=== PATIENT | male | born 1965 | race Caucasian/White ===

== ENCOUNTER 2017-12-06 13:01 | Emergency (ER) | payer BC, SELFPAY ==
[2017-12-06 13:06] VITALS: BP 132/103; PULSE 61; RESP 16; TEMP 36.7; O2SAT 98
--- NOTE | 2017-12-06 13:45 | DI.RAD_ITS ---
SYMPTOMS/DIAGNOSIS: LACERATION DISTAL PHALANX LEFT INDEX FINGER: There is a comminuted fracture of the distal phalanx of the index finger and an open soft tissue wound. There is some displacement of a few small fracture fragments as well as mild angulation. IMPRESSION: Open comminuted fracture of the distal phalanx of the index finger.
[2017-12-06] MEDS: Bupivacaine 0.5% Pres-Free 30 ML VIAL 5 ML IJ (13:56)
--- NOTE | 2017-12-06 14:32 | W.ED.GENAD ---
Discharge Plan Disposition Patient Disposition: HOME Discharge Details Chief Complaint: Laceration Clinical Impression: Crushing injury of left index finger, Fracture of distal phalanx of index finger, Injury of nail bed of finger of left hand Primary Care Provider: Leonard Ricks ED Provider: Balta Gordon Home Meds and New Rx's Prescriptions: New cephalexin 500 mg tablet 500 mg PO TID Qty: 6 RF: 0 Continue aspirin [Aspirin Low-Strength] 81 MG tablet,chewable 81 mg PO DAILY RF: 0 lovastatin 40 MG tablet 40 mg PO QPM Qty: 90 RF: 3 vitamin B complex 1 EACH capsule 1 ea PO DAILY RF: 0 lisinopril-hydrochlorothiazide 1 EACH tablet 0.5 tab-cap PO DAILY RF: 0 Discharge Instructions Instructions: Finger Fracture (ED) Additional Instructions: Take ibuprofen 600 mg every 6 hours as needed for pain. Take Tylenol 650 mg every 6 hours as needed for pain. Keep splint intact. No use of injured digit until cleared. Follow-up with Dr. Mckinney. Call his office to schedule an appointment. Return to the ER for any worsening or new concerning symptoms. Referrals: Randell Mckinney MD [ [facility] STAFF PHYSICIAN] - Leonard Ricks [Primary Care Provider] - Medical Decision Making 52-year-old male presents with crush injury to his distal left second digit, laceration extending into the nailbed with partial nail avulsion. X-ray of the left second digit interpreted by me: Fracture of the distal phalanx I called and spoke with Dr. Mckinney, on-call orthopedics, who evaluated the patient here in the emergency department. With his assistance the nail was inserted under eponychium and fracture reducted. Laceration repair: Indication: bleeding, wound Consent: verbal Anesth: digital block Note: wound irrigated with copious sterile saline, prepred with betadine. I placed #2 nylon 4-0 sutures to approximate skin laceration. An additional single proline 4-0 suture was placed through nail to keep nail in place. Sterile dressing applied. Complications: none Your splint was placed by me. Patient was instructed to follow-up with Dr. Mckinney in the clinic. He will call the clinic for an appointment. Patient be provided Keflex prophylaxis for the next couple days. Tetanus is up to date. HPI General Mode of arrival: ambulatory. Date/Time Provider Initiated Documentation: 12/06/17 13:23. Limitations to Documentation: no limitations. Information obtained by: patient. HPI Narrative: 52-year-old male presents with injury to his left second digit. Patient notes he was at work about an hour prior to arrival and sustained a crush injury to his left second digit distally. Finger was caught between 2 heavy pieces of steel. He did sustain laceration that has been bleeding. Bleeding was initially heavy and has decreased. No modifiers. Pain is moderate to severe. Related Data Home Medications Medication Instructions Recorded Confirmed aspirin [Aspirin Low-Strength] 81 mg PO DAILY tab-cap 05/22/12 12/06/17 lovastatin 40 mg PO QPM #90 tab 11/01/16 12/06/17 vitamin B complex 1 ea PO DAILY 02/21/17 12/06/17 cephalexin 500 mg PO TID #6 tab 12/06/17 lisinopril-hydrochlorothiazide 0.5 tab-cap PO DAILY 12/06/17 12/06/17 Previous Rx's Medication Instructions Recorded lovastatin 40 mg PO QPM #90 tab 11/01/16 cephalexin 500 mg PO TID #6 tab 12/06/17 Allergies Allergy/AdvReac Type Severity Reaction Status Date / Time No Known Allergies Allergy Unverified 12/06/17 13:10 General Stated Complaint: Laceration ELIAZAR: 3 Review of Systems Musculoskeletal Reports as per HPI Integumentary/Breasts Reports as per HPI PFSH Family History Mother Essential hypertension Neoplasm Father Diabetes Essential hypertension Heart disease Sister No problems noted. Brother Diabetes Essential hypertension Brother No problems noted. 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 pets and animals: No frequency: does not exercise Smoking/Tobacco Use Status: Never alcohol intake: current alcohol intake frequency: a few times a month substance use type: does not use carolyn/adventism: Confucianist Surgical History Tonsillectomy Exam Const General: cooperative Orientation: alert and awake Skin Other: 2 cm laceration left lateral distal phalanx extending dorsally into the nailbed, nail partially avulsed Neuro Other: see extremity Extrem Right upper extremity: hand Left upper extremity: hand (second digit: distal laceration and partial nail avulsion (see skin), distal sensation decrease laterally, able to flext and ext at DIP with pain, brisk cap refill) Course Vital Signs Temperature 36.7 C 12/06/17 13:06 Pulse 61 12/06/17 13:06 Respiratory Rate 16 12/06/17 13:06 Blood Pressure 132/103 H 12/06/17 13:06 Pulse Oximetry 98 12/06/17 13:06 Temperature 36.7 C 12/06/17 13:06 Temperature Source Skin 12/06/17 13:06 Pulse 61 12/06/17 13:06 Respiratory Rate 16 12/06/17 13:06 Respiratory Effort 12/06/17 13:11 Blood Pressure 132/103 H 12/06/17 13:06 Blood Pressure Position Sitting 12/06/17 13:06 Pulse Oximetry 98 12/06/17 13:06 Oxygen Delivery Method Room Air 12/06/17 13:06 Oxygen Flow Rate 0 12/06/17 13:06 Pain Level 6 12/06/17 13:06 Procedures Nerve Block Nerve Block 1: Time out performed: Yes Local Anesthetic: Bupivicaine 0.5% Amount of anesthesia used (mL): 4 Side: left Nerve Blocks: digital Procedure Successful: Yes Patient Tolerated Procedure: well Complications: none
--- NOTE | 2017-12-06 14:42 | ED.GENADUL_ITS ---
Discharge Plan Disposition Patient Disposition: HOME Discharge Details Chief Complaint: Laceration Clinical Impression: Crushing injury of left index finger, Fracture of distal phalanx of index finger, Injury of nail bed of finger of left hand Primary Care Provider: Leonard Ricks ED Provider: Balta Gordon Home Meds and New Rx's Prescriptions: New cephalexin 500 mg tablet 500 mg PO TID Qty: 6 RF: 0 Continue aspirin [Aspirin Low-Strength] 81 MG tablet,chewable 81 mg PO DAILY RF: 0 lovastatin 40 MG tablet 40 mg PO QPM Qty: 90 RF: 3 vitamin B complex 1 EACH capsule 1 ea PO DAILY RF: 0 lisinopril-hydrochlorothiazide 1 EACH tablet 0.5 tab-cap PO DAILY RF: 0 Discharge Instructions Instructions: Finger Fracture (ED) Additional Instructions: Take ibuprofen 600 mg every 6 hours as needed for pain. Take Tylenol 650 mg every 6 hours as needed for pain. Keep splint intact. No use of injured digit until cleared. Follow-up with Dr. Mckinney. Call his office to schedule an appointment. Return to the ER for any worsening or new concerning symptoms. Referrals: Randell Mckinney MD [ [facility] STAFF PHYSICIAN] - Leonard Ricks [Primary Care Provider] - Medical Decision Making 52-year-old male presents with crush injury to his distal left second digit, laceration extending into the nailbed with partial nail avulsion. X-ray of the left second digit interpreted by me: Fracture of the distal phalanx I called and spoke with Dr. Mckinney, on-call orthopedics, who evaluated the patient here in the emergency department. With his assistance the nail was inserted under eponychium and fracture reducted. Laceration repair: Indication: bleeding, wound Consent: verbal Anesth: digital block Note: wound irrigated with copious sterile saline, prepred with betadine. I placed #2 nylon 4-0 sutures to approximate skin laceration. An additional single proline 4-0 suture was placed through nail to keep nail in place. Sterile dressing applied. Complications: none Your splint was placed by me. Patient was instructed to follow-up with Dr. Mckinney in the clinic. He will call the clinic for an appointment. Patient be provided Keflex prophylaxis for the next couple days. Tetanus is up to date. HPI General Mode of arrival: ambulatory . Date/Time Provider Initiated Documentation: 12/06/17 13:23 . Limitations to Documentation: no limitations . Information obtained by: patient . HPI Narrative: 52-year-old male presents with injury to his left second digit. Patient notes he was at work about an hour prior to arrival and sustained a crush injury to his left second digit distally. Finger was caught between 2 heavy pieces of steel. He did sustain laceration that has been bleeding. Bleeding was initially heavy and has decreased. No modifiers. Pain is moderate to severe. Related Data Home Medications Medication Instructions Recorded Confirmed aspirin [Aspirin Low-Strength] 81 mg PO DAILY tab-cap 05/22/12 12/06/17 lovastatin 40 mg PO QPM #90 tab 11/01/16 12/06/17 vitamin B complex 1 ea PO DAILY 02/21/17 12/06/17 cephalexin 500 mg PO TID #6 tab 12/06/17 lisinopril-hydrochlorothiazide 0.5 tab-cap PO DAILY 12/06/17 12/06/17 Previous Rx's Medication Instructions Recorded lovastatin 40 mg PO QPM #90 tab 11/01/16 cephalexin 500 mg PO TID #6 tab 12/06/17 Allergies Allergy/AdvReac Type Severity Reaction Status Date / Time No Known Allergies Allergy Unverified 12/06/17 13:10 General Stated Complaint: Laceration ELIAZAR: 3 Review of Systems Musculoskeletal Reports as per HPI Integumentary/Breasts Reports as per HPI PFSH Family History Mother Essential hypertension Neoplasm Father Diabetes Essential hypertension Heart disease Sister No problems noted. Brother Diabetes Essential hypertension Brother No problems noted. 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 pets and animals: No frequency: does not exercise Smoking/Tobacco Use Status: Never alcohol intake: current alcohol intake frequency: a few times a month substance use type: does not use carolyn/restoration: Yarsani Surgical History Tonsillectomy Exam Const General: cooperative Orientation: alert and awake Skin Other: 2 cm laceration left lateral distal phalanx extending dorsally into the nailbed, nail partially avulsed Neuro Other: see extremity Extrem Right upper extremity: hand Left upper extremity: hand (second digit: distal laceration and partial nail avulsion (see skin), distal sensation decrease laterally, able to flext and ext at DIP with pain, brisk cap refill) Course Vital Signs Temperature 36.7 C 12/06/17 13:06 Pulse 61 12/06/17 13:06 Respiratory Rate 16 12/06/17 13:06 Blood Pressure 132/103 H 12/06/17 13:06 Pulse Oximetry 98 12/06/17 13:06 Temperature 36.7 C 12/06/17 13:06 Temperature Source Skin 12/06/17 13:06 Pulse 61 12/06/17 13:06 Respiratory Rate 16 12/06/17 13:06 Respiratory Effort 12/06/17 13:11 Blood Pressure 132/103 H 12/06/17 13:06 Blood Pressure Position Sitting 12/06/17 13:06 Pulse Oximetry 98 12/06/17 13:06 Oxygen Delivery Method Room Air 12/06/17 13:06 Oxygen Flow Rate 0 12/06/17 13:06 Pain Level 6 12/06/17 13:06 Procedures Nerve Block Nerve Block 1: Time out performed: Yes Local Anesthetic: Bupivicaine 0.5% Amount of anesthesia used (mL): 4 Side: left Nerve Blocks: digital Procedure Successful: Yes Patient Tolerated Procedure: well Complications: none
[2017-12-06] MEDS: Acetaminophen 325 MG TAB 650 MG PO (15:40)
[2017-12-06] MEDS: Cephalexin 500 MG CAP PO (15:40)
[2017-12-06 15:48] VITALS: BP 130/90; PULSE 58; RESP 14; TEMP 37; O2SAT 98
--- NOTE | 2017-12-06 20:32 | OCONE_ITS ---
Date of service: 12/06/17 Time of Service: 14:30 History of Present Illness Chief Complaint: Left Index Finger Deformity Narrative: Lonny is a 52-year-old who had a left index finger crusting to piece of steel. He has an open fracture of the left index finger with deformity laceration over the ulnar aspect. He denies any significant injuries to this hand. He denies any other injuries at the time. He does have some numbness and tingling of the tip of the finger. All bleeding has been controlled. Consult Reason Left index finger open fracture Assessment and Plan (1) Open fracture of distal phalanx of left index finger: Current visit: No Status: Acute Lonny is a 52-year-old who has a comminuted distal phalanx fracture which is open due to laceration from a crushing mechanism. It is very possible some of the surrounding tissue does not heal as well as would like given the crush mechanism. However the current cut edges are quite good. The bone is comminuted but overall alignment is maintained with the current laceration approximation. The nail plate was pulled out of the eponychial fold but now appears to be reduced. I am hopeful that we will be able to hold this in position where it is. He will had 2 days worth of antibiotics in the open fracture. I will see him back in 5-7 days for dressing change and evaluation. Review of Systems Review of Systems All systems reviewed & are unremarkable except as noted in HPI and below PFSH Family History Mother Essential hypertension Neoplasm Father Diabetes Essential hypertension Heart disease Sister No problems noted. Brother Diabetes Essential hypertension Brother No problems noted. 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 There is no exposed bone. There is no gross contamination. The nail plate is displaced dorsal to the eponychial fold. There is no active bleeding. The fingertip is still warm and well perfused. It is radially angulated with gapping of the ulnar laceration of 5 mm or so. He is able to flex and extend the fingertip. I have assisted Dr. Gordon in evaluation and fixation of this injury. A digital block was performed by Dr. Gordon in the emergency department. Wound and finger were prepped with Betadine. There is no gross bone visible. I was able to manipulate the distal tip of the finger so that the nail plate would go underneath the eponychial fold. This reduced the finger including the ulnar base laceration. There may have been a slight amount of ulnar angulation of the finger. 3 sutures were applied, one through the nail, which reapproximated the fingertip. Fingertip was dressed with Xeroform, 4 x 4's. An AlumaFoam splint was applied for protection. Results Last Vital Signs Temp 37.0 C 12/06/17 15:48 Pulse 58 L 12/06/17 15:48 Resp 14 12/06/17 15:48 BP 130/90 12/06/17 15:48 Pulse Ox 98 12/06/17 15:48
== END 2017-12-06 15:50 | disposition home or self-care (01) ==
PROVIDERS: Emergency Provider Student in an Organized Health Care Education/Training Program; PCP Family Medicine
DX: S67.191A Crushing injury of left index finger, initial encounter (principal); S61.311A Laceration without foreign body of left index finger with damage to nail, initial encounter; S62.631B Displaced fracture of distal phalanx of left index finger, initial encounter for open fracture; W23.1XXA Caught, crushed, jammed, or pinched between stationary objects, initial encounter; I10 Essential (primary) hypertension; Y99.0 Civilian activity done for income or pay
CPT/HCPCS: 12001; 26750; 99253; 73140

== ENCOUNTER 2017-12-20 09:47 | Outpatient (CLI) | payer BC, SELFPAY ==
--- NOTE | 2017-12-20 09:44 | DI.RAD_ITS ---
SYMPTOM/DIAGNOSIS: F/U FX LEFT INDEX FINGER: When compared with the prior examination, again noted is the comminuted fracture of the distal phalanx of the index finger. Apposition and alignment of the fracture fragments is unchanged when compared with the prior images.
== END 2017-12-20 10:07 ==
PROVIDERS: PCP Family Medicine; Visit Provider Student in an Organized Health Care Education/Training Program
DX: S62.631D Displaced fracture of distal phalanx of left index finger, subsequent encounter for fracture with routine healing (principal)
CPT/HCPCS: 73140

== ENCOUNTER 2018-02-22 01:19 | Outpatient (CLI) | payer BC, SELFPAY ==
[2018-02-22 08:30] LABS: Cholesterol 216 mg/dL (50-200); HDL Cholesterol 51 mg/dL (40-60); LDL CHOLESTEROL 151 mg/dL (<100); Triglyceride 61 mg/dL (30-150)
== END 2018-02-22 01:39 ==
PROVIDERS: PCP Family Medicine; Visit Provider Family Medicine
DX: E11.9 Type 2 diabetes mellitus without complications (principal); E78.5 Hyperlipidemia, unspecified
CPT/HCPCS: 36415; 80061; 83721; 83036

== ENCOUNTER 2019-02-22 02:37 | Outpatient (CLI) | payer BC, SELFPAY ==
[2019-02-22 07:58] LABS: Hemoglobin A1C 5.8 % (3.8-5.6)
[2019-02-22 08:21] LABS: CREATININE 0.99 mg/dL (0.70-1.30); Calculated LDL 119 mg/dL; Cholesterol 186 mg/dL (<200); HDL Cholesterol 49 mg/dL (40-60); Potassium 4.5 mmol/L (3.5-5.1); Triglyceride 90 mg/dL (<150)
== END 2019-02-22 02:57 ==
PROVIDERS: PCP Family Medicine; Visit Provider Family Medicine
DX: I10 Essential (primary) hypertension (principal); R73.9 Hyperglycemia, unspecified
CPT/HCPCS: 36415; 80061; 82565; 83036; 84132

== ENCOUNTER 2020-03-04 18:10 | Outpatient (CLI) | payer BC, SELFPAY ==
--- NOTE | 2020-03-04 12:45 | DI.RAD_ITS ---
EXAM: XR LUMBAR SPINE COMPLETE CLINICAL HISTORY: left sciatica,ACUTE LOW BACK PAIN,M54.5. TECHNIQUE: 2D digital imaging was performed. COMPARISON: CR LUMBAR SPINE COMPLETE from 12/02/2016 FINDINGS: There are 5 lumbar type vertebral bodies. There is normal alignment. Mild disc space narrowing is s een at L5-S1. There are small endplate osteophytes at L4-5 and L5-S1. No acute fracture or subluxat ion. The soft tissues are unremarkable. IMPRESSION: Mild degenerative changes in the lumbar spine. DATA REPOSITORY: RADIATION DOSE DELIVERED:
== END 2020-03-04 18:30 ==
PROVIDERS: PCP Family Medicine; Visit Provider Family Medicine
DX: M25.78 Osteophyte, vertebrae (principal); M54.32 Sciatica, left side; M47.816 Spondylosis without myelopathy or radiculopathy, lumbar region
CPT/HCPCS: 72110

== ENCOUNTER 2020-03-04 19:30 | Outpatient (REF) | payer BC, SELFPAY ==
[2020-03-04 14:32] LABS: CREATININE 0.95 mg/dL (0.70-1.30); Calculated LDL 121 mg/dL (<100); Cholesterol 203 mg/dL (<200); HDL Cholesterol 56 mg/dL (40-60); Potassium 4.1 mmol/L (3.5-5.1); Triglyceride 130 mg/dL (<150)
[2020-03-04 14:35] LABS: Hemoglobin A1C 5.9 % (<5.7)
[2020-03-04 23:36] LABS: PSA, Screening 0.5 ng/mL (0.0-3.5)
== END 2020-03-04 19:50 ==
LOC: LBN 19:30
PROVIDERS: PCP Family Medicine; Visit Provider Family Medicine
DX: I10 Essential (primary) hypertension (principal); R73.9 Hyperglycemia, unspecified; E78.5 Hyperlipidemia, unspecified; Z12.5 Encounter for screening for malignant neoplasm of prostate
CPT/HCPCS: 80061; 84153; 82565; 83036; 84132

== ENCOUNTER 2020-04-22 14:34 | Outpatient (CLI) | payer BC, SELFPAY ==
--- NOTE | 2020-04-22 10:45 | DI.RAD_ITS ---
EXAM: XR SHOULDER RT COMPLETE 2+V CLINICAL HISTORY: RT SHOULDER PAIN. TECHNIQUE: 2D digital imaging was performed. COMPARISON: No exams were available for comparison FINDINGS: BONES: No acute fracture is present. No bony destructive lesion is seen. JOINTS: No dislocation present. Mild degenerative changes are seen at the acromioclavicular joint. SOFT TISSUE: Normal. IMPRESSION: Mild degenerative changes of the right AC joint. DATA REPOSITORY: RADIATION DOSE DELIVERED:
== END 2020-04-22 14:35 | disposition home or self-care (01) ==
LOC: DIORS 14:35
PROVIDERS: PCP Family Medicine; Referring Provider Family Medicine; Visit Provider Student in an Organized Health Care Education/Training Program
DX: M19.011 Primary osteoarthritis, right shoulder (principal)
CPT/HCPCS: 73030

== ENCOUNTER 2021-03-09 09:43 | Outpatient (REF) | payer BC, SELFPAY ==
[2021-03-11 15:13] LABS: COVID-19 RT-PCR UVMMC Result Positive (Negative)
== END 2021-03-09 09:44 | disposition home or self-care (01) ==
LOC: LBN 09:43
PROVIDERS: PCP Family Medicine; Visit Provider Family Medicine
DX: Z20.822 Contact with and (suspected) exposure to COVID-19 (principal)
CPT/HCPCS: U0003

== ENCOUNTER 2021-03-16 02:02 | Outpatient (CLI) | payer BC, SELFPAY ==
[2021-03-16 07:38] LABS: Hemoglobin A1C 6.1 % (<5.7)
[2021-03-16 08:43] LABS: CREATININE 1.1 mg/dL (0.70-1.30); Calculated LDL 136 mg/dL (<100); Cholesterol 208 mg/dL (<200); HDL Cholesterol 44 mg/dL (40-60); Potassium 4.5 mmol/L (3.5-5.1); Triglyceride 141 mg/dL (<150)
== END 2021-03-16 02:03 | disposition home or self-care (01) ==
LOC: LBO 02:03
PROVIDERS: PCP Family Medicine; Visit Provider Family Medicine
DX: E78.5 Hyperlipidemia, unspecified (principal); I10 Essential (primary) hypertension; R73.09 Other abnormal glucose
CPT/HCPCS: 36415; 80061; 82565; 83036; 84132

== ENCOUNTER 2022-03-21 02:53 | Outpatient (CLI) | payer BC, SELFPAY ==
[2022-03-21 07:52] LABS: CREATININE 1.1 mg/dL (0.70-1.30); Calculated LDL 127 mg/dL (<100); Cholesterol 202 mg/dL (<200); HDL Cholesterol 50 mg/dL (40-60); Potassium 4.3 mmol/L (3.5-5.1); Triglyceride 126 mg/dL (<150)
== END 2022-03-21 02:54 | disposition home or self-care (01) ==
LOC: LBO 02:53
PROVIDERS: PCP Family Medicine; Visit Provider Family Medicine
DX: I10 Essential (primary) hypertension (principal); E78.5 Hyperlipidemia, unspecified
CPT/HCPCS: 36415; 80061; 82565; 84132

== ENCOUNTER 2023-03-10 08:59 | Outpatient (CLI) | payer BC, SELFPAY ==
[2023-03-10 07:57] LABS: Hemoglobin A1C 6.1 % (<5.7)
[2023-03-10 08:11] LABS: Calculated LDL 127 mg/dL (<100); Cholesterol 200 mg/dL (<200); Estimated GFR 87.24 (mL/min/1.73m2); HDL Cholesterol 53 mg/dL (40-60); Potassium 4.2 mmol/L (3.5-5.1); Triglyceride 100 mg/dL (<150)
[2023-03-10 17:56] LABS: PSA, Screening 0.5 ng/mL (<=3.5)
== END 2023-03-10 09:00 | disposition home or self-care (01) ==
LOC: LBO 08:59
PROVIDERS: PCP Family Medicine; Visit Provider Family Medicine
DX: E11.51 Type 2 diabetes mellitus with diabetic peripheral angiopathy without gangrene (principal); E78.5 Hyperlipidemia, unspecified; I10 Essential (primary) hypertension; Z12.5 Encounter for screening for malignant neoplasm of prostate
CPT/HCPCS: 36415; 80061; 84153; 82565; 83036; 84132

== ENCOUNTER 2024-03-28 03:18 | Outpatient (CLI) | payer BC, SELFPAY ==
[2024-03-28 07:40] LABS: Hemoglobin A1C 6.6 % (<5.7)
[2024-03-28 07:51] LABS: Calculated LDL 112 mg/dL (<100); Cholesterol 195 mg/dL (<200); HDL Cholesterol 47 mg/dL (40-60); Triglyceride 182 mg/dL (<150)
== END 2024-03-28 03:19 | disposition home or self-care (01) ==
LOC: LBO 03:18
PROVIDERS: PCP Family Medicine; Visit Provider Family Medicine
DX: E78.5 Hyperlipidemia, unspecified (principal); R73.9 Hyperglycemia, unspecified
CPT/HCPCS: 36415; 80061; 83036